=== PATIENT | male | born 1950 | race Caucasian/White ===

== ENCOUNTER 2023-10-14 18:54 | Inpatient (IN) | payer OTHER, SELFPAY ==
[2023-10-14 15:30] VITALS: BP 155/80
--- NOTE | 2023-10-14 15:39 | W.PN.CD ---
Addendum entered and electronically signed by Rome Pantoja MD 10/14/23 17:35:
Agree with below.
-Patient referred over from the cardiology office by Dr. Buckner for ICD shock and CHF.
-Patient to be admitted to Hospitalist service; IDDM.
-Patient is scheduled to undergo cardiac catheterization tomorrow for ischemic reevaluation; NPO after MN.
Original Note:
Today's Communication / Plan
-
Diuresis
NPO after midnight, hold apixaban
Cardiac catheterization in a.m. if renal function remains stable
Impression / Plan
-
*SEE SCANNED CONSULT*
THIS IS THE SUMMARY
Background: [address] Buckner with CAD, ICM, VT s/p ablation, BiV ICD (prior [employer] lead fracture with new RV lead placement 2011, prior BiV ICD pocket infection with extraction and replacement), hypertension, and diabetes requiring
insulin presented to the cardiology office after ICD shock.
Impression/Plan:
ICD shock
-36J with samaritan to sinus on 10/12/2023 at 2100 for VF, he was unaware of ICD therapy as he was asleep
-Amiodarone intolerance noted
-Continue sotalol & increase carvedilol to 25 mg
-Ischemic evaluation in a.m.
Paroxysmal atrial fibrillation
-Brief on prior device check, maintaining sinus on sotalol
-Oral Anticoagulation: Apixaban 5mg BID, he denies abnormal bleeding, he has missed one dose in the last week, hold for C in am
-[id number]: score at least 5 (Heart failure, HTN, Diabetes Mellitus, Vascular disease, age 65-74)
HFrEF/ICM (EF 20-25%), acute on chronic
-Up 10 pounds with lower extremity edema, without orthopnea & PND
-Diuresis with furosemide 40mg IV x 1 now
-GDMT as tolerated
-Beta-aisha: Carvedilol 25mg BID
-Aldosterone agonist: Can consider after recovery
-Isosorbide/hydralazine: Isosorbide mononitrate 60 mg daily
-MIS/ARB: Losartan 25 mg daily (Entresto cost prohibitive)
-SGLT inhibitor: Cost prohibitive
-BiV ICD: Implanted ([employer])
-Follow daily weight, I/Os, and BMP
-Heart failure education
-TTE in am
CAD
-Denies angina
-Ischemic evaluation via coronary angiography in am
-Continue ASA, beta aisha, and statin
-Lipid panel in am
VT/VF, on carvedilol and sotalol, ICD shock as above
Hypomagnesemia, 1.4 this am, replace
GERD, on PPI, follows with GI
Type 2 diabetes mellitus, Hgba1c in am
Anemia, chronic
Former smoker, continued cessation recommended
Subjective:
See scanned consultation.
Physical Exam
Vital Signs/Labs
Vital Signs
Temp Pulse Resp BP Pulse Ox
98.1 F 68 16 155/80 95
10/14/23 15:30 10/14/23 15:30 10/14/23 15:30 10/14/23 15:30 10/14/23 15:30
Physical Exam
Constitutional: No acute distress and Comfortable
EENT: Anicteric and Moist mucous membranes
Cardiovascular: Rhythm & rate is regular, Pedal edema present and S1S2 is normal
Respiratory: Respiratory effort normal and Lungs clear to auscul.
GI: Soft, Distention absent, Flat, Non tender and Normal bowel sounds
Neuro/Psych: AO x 3
Other: Skin (warm and dry with LE edema)
Data Reviewed
-
Date of Service: October 14, 2023
Labs: Labs Reviewed by me
Old Records: Reviewed
[2023-10-14 16:06] LABS: % Basophils 0.8 % (0-2); % Eosinophils 1.8 % (0-6); % Immature Granulocytes 0.3 % (0-0.5); % Lymphocytes 14.2 % (20.5-51.1); % Monocytes 8.6 % (1.7-9.3); % Neutrophils 74.3 % (42.2-75.2); Absolute Basophils 0.1 10^3/uL (0-0.2); Absolute Eosinophils 0.1 10^3/uL (0-0.7); Absolute Monocytes 0.6 10^3/uL (0.1-0.6); Absolute Neutrophils 5.2 10^3/uL (1.4-6.5); Hematocrit 33.2 % (39.0-52.0); Hemoglobin 9.4 g/dL (13.0-18.0); Mean Corp Hgb Conc. 28.3 g/dL (33.0-37.0); Mean Corpuscular Hgb 22.2 pg (27.0-31.0); Mean Corpuscular Volume 78.5 fL (80.0-94.0); Mean Platelet Volume 11.2 fL (7.4-10.4); Nucleated Red Blood Cells % 0 % (-); Platelet Count 227 10^3/uL (130-400); Red Blood Cell Count 4.23 10^6/uL (4.70-6.10); Red Cell Dist. Width 18.5 % (11.5-14.5); White Blood Cell Count 7.1 10^3/uL (4.8-10.8)
[2023-10-14 16:22] LABS: ALT (SGPT) 79 U/L (0-50); AST (SGOT) 131 U/L (17-59); Albumin 4.1 g/dl (3.5-5.0); Alkaline Phosphatase 198 U/L (38-126); Blood Urea Nitrogen 25 mg/dl (9-20); Calcium 8.4 mg/dl (8.4-10.2); Carbon Dioxide 27 mmol/L (22-30); Chloride 104 mmol/L (98-107); Glucose 180 mg/dl (70-99); Potassium 4.6 mmol/L (3.5-5.1); Sodium 137 mmol/L (135-145); Total Bilirubin 1.9 mg/dl (0.2-1.3); Total Protein 7.2 g/dl (6.3-8.2); eGFR > 60.00
[2023-10-14 16:39] LABS: Hypochromasia Slight; Normal RBC Morphology No
[2023-10-14 16:40] LABS: Ovalocytes Slight
[2023-10-14 16:42] LABS: Macrocytosis Slight
[2023-10-14 16:55] LABS: Troponin I 0.025 ng/ml
--- NOTE | 2023-10-14 17:26 | ED.GENMED ---
History of Present Illness
General
Chief Complaint: Breathing Problem
Source: patient and records
Exam Limitations: none
Time Seen by Provider: 10/14/23 17:18
Nursing documentation reviewed up to this point in time: agreed with
Travel History
Have you had any contact with someone who has COVID-19?: No
Do you have any symptoms of coronavirus? Fever > 100 degrees, chills, cough, shortness of breath, sore throat, loss of taste or smell, muscle aches, or headache?: No
History of Present Illness
History of Present Illness:
72-year-old male history of CHF, presents for evaluation of AICD shock apparently he was sleeping does not recall the shock, though previously has been shocked he does remember the shock, does have 10 pound weight gain, told he had low magnesium,
this is unconfirmed at this time, he is diabetic has hypertension
Past History
Past History
ED Past Medical History: Arrthythmia, CAD, CHF, GERD, HTN, IDDM, ND and Other
ED Past Surgical History: Cardiac (Placement of a defibrillator)
Social History
Tobacco: Non-smoker
Alcohol: None
Drug: None
Personal:
Living: with family
Employment: Disabled
Family History
Family History: Hypertension
Review of Systems
Review of Systems
All Other Systems: Not applicable
Constitutional: Reports weight gain and fatigue; Denies fever
Respiratory: Reports trouble breathing; Denies cough or hemoptysis
Cardiac: Reports no symptoms
ABD/GI: Reports no symptoms
: Reports no symptoms
Musculoskeletal: Reports edema
Skin: Reports no symptoms
Endocrine: Reports no symptoms
Psychiatric: Reports no symptoms
Phy Exam
Physical Exam
Physical Exam:
This
Physical Exam
General: 72 male looks dyspnea
Neck: No jaundice
Heart: s1/s2 regular rate and rhythm, no murmur. equal radial pulses.
Lungs: Faint crackle
Abdomen: Nontender
Neuro: alert and oriented. no focal neurological deficits
Skin: no rash
Psychiatric: well kept. interactive and cooperative
Extremities: Edema is present
Scores
Heart Failure Risk
Heart Failure Risk Score: Not Applicable
Course
Orders/Labs/Results
Orders:
Orders
10/14/23 15:35
Electrocardiogram (*1) Urgent
Reason for Study: Shortness of Breath
EKG- Treatment ONCE
10/14/23 15:54
Complete Blood Count/With Diff Urgent
Comprehensive Metabolic Panel Urgent
Digoxin Urgent
Comment: ADD ON
Magnesium Urgent
Comment: ADD ON
Phosphorus Urgent
Comment: ADD ON
Troponin I Urgent
10/14/23 17:18
Add On- LAB Urgent
Tests Added?: pbnp
CR Chest Portable - 1 View Urgent
Comment:
Reason For Exam: sob
Reason Study Needs to be Portable: Patient Unstable
10/14/23 17:20
Add On- LAB Urgent
Tests Added?: magnesium
10/14/23 17:28
Add On- LAB Urgent
Tests Added?: Digoxin
10/14/23 18:15
Add On- LAB Routine
Tests Added?: iron, ferritin, transferrin, TIBC, B12, folate
Admit/Transfer Patient As Directed
Co-Sign Provider:
Level of Care: Inpatient admission
Assign to:: IVU
Physician / Group: brigido kaye
Diagnosis: VF s/p ICD shock,CHF exacerbation
Reason for Hospitalization: VF s/p ICD shock,CHF exacerbation
Expected length of stay greater than two midnights?: Yes
ELOS- Estimated Length of Stay in days: 3
I certify the patient meets the requirements for IP care: Yes
10/14/23 18:18
Code Status As Directed
Resuscitation Status: Full Code
10/14/23 18:27
Magnesium Sulfate 2 Gram/50 ml [Magnesium Sulfate] 2 gram in 50 ml IV NOW
10/14/23 18:28
Furosemide [Lasix] 40 mg IV NOW STA
10/15/23 06:00
Echo 2D MMode Color/Doppler IN AM
Reason for Study: HFrEF, ICM, ICD shock
NPO
Allow oral meds: Yes
Allow clear liquids: No
Hgba1c [Glycohemoglobin (HgbA1c)] IN AM
Lipid Profile [Cardiovascular Evaluation] IN AM
Abnormal Lab Results
10/14/23
15:54
RBC 4.23 L 10^6/uL
(4.70-6.10)
Hgb 9.4 L g/dL
(13.0-18.0)
Hct 33.2 L %
(39.0-52.0)
MCV 78.5 L fL
(80.0-94.0)
MCH 22.2 L pg
(27.0-31.0)
MCHC 28.3 L g/dL
(33.0-37.0)
RDW 18.5 H %
(11.5-14.5)
MPV 11.2 H fL
(7.4-10.4)
Absolute Lymphs (auto) 1.0 L 10^3/uL
(1.2-3.4)
Lymphocytes % 14.2 L %
(20.5-51.1)
BUN 25 H mg/dl
(9-20)
Glucose 180 H mg/dl
(70-99)
Total Bilirubin 1.9 H mg/dl
(0.2-1.3)
AST 131 H U/L
(17-59)
ALT 79 H U/L
(0-50)
Alkaline Phosphatase 198 H U/L
(38-126)
Digoxin 0.4 L ng/ml
(0.8-2.0)
10/14/23 15:54
10/14/23 15:54
Vital Signs
Initial and Last Documented VS:
Initial Vital Signs
Temp Pulse Resp BP Pulse Ox
98.1 F 68 16 155/80 95
10/14/23 15:30 10/14/23 15:30 10/14/23 15:30 10/14/23 15:30 10/14/23 15:30
Last Documented Vital Signs
Temp Pulse Resp BP Pulse Ox
98.1 F 64 19 155/80 98
10/14/23 15:30 10/14/23 17:45 10/14/23 17:45 10/14/23 15:30 10/14/23 17:45
MDM/Problems Addressed
Differential Diagnosis Includes:
Torsades VT VF heart failure
MDM/Problems Addressed:
VT showed
Chronic conditions affecting care:
Heart failure CAD diabetes
Chronic conditions affecting care: DM
Acute Exacerbation and/or Progression of Chronic Illness: DM and Cardiomyopathy
*Radiology
Radiology exam reviewed: preliminary read by ED provider
*Pulse Oximetry
Patient hypoxic: no
*EKG
Interpreted by ED Provider?: Yes
Interpretation: abnormal
Comparison EKG: no comparison EKG present
Heart Rate: 7
Rate: normal
Rhythm: sinus
Ischemia: non-specific ST changes
*Business Development Executive Interpretation
Rate: normal
Interpretation: normal
Rhythm: ventricular paced
*Critical Care Note
Total Time (30-74mins, 75-104mins- exclusive of procedures): 12
ED Attending Note
-
Portions of this chart may have been created with voice recognition software.� Occasional wrong word or��sound alike� substitutions may have occurred due to the inherent limitations of voice recognition software.
Discharge Plan
Departure
Patient Disposition: Admit
Date of Disposition: 10/14/23
Time of Disposition: 18:13
Presentation/result/management discussed w/ accepting MD/DO: Hospitalist
Patient with high blood pressure during this ER visit?: Yes
Condition: Fair
Covid-19: Not Applicable
Discharge Problem:
Ventricular tachycardia, Hypomagnesemia
Prescriptions:
No Action
digoxin 0.125 MG tablet
0.125 mg PO MOWEFR
atorvastatin 80 MG tablet
80 mg PO QPM
aspirin 81 MG tablet,delayed release (DR/EC)
81 mg PO DAILY
Novolin 70/30 U-100 Insulin 100 UNIT/1 ML suspension
60 units SC MEALS
sotalol [Betapace] 160 MG tablet
160 mg PO BID
pantoprazole 40 MG tablet,delayed release (DR/EC)
40 mg PO DAILY
metformin 1,000 MG tablet
1,000 mg PO BID@0800,1700
losartan 25 MG tablet
25 mg PO QPM
furosemide 20 MG tablet
20 mg PO DAILY
cholecalciferol (vitamin D3) [Vitamin D3] 1,000 UNIT capsule
1,000 unit PO Daily
carvedilol [Coreg] 12.5 mg Tablet
12.5 mg PO BID
isosorbide mononitrate [Imdur] 60 mg Tablet Extended Release 24 Hr
60 mg PO DAILY
tamsulosin [Flomax] 0.4 mg Capsule
0.4 mg PO HS
montelukast [Singulair] 10 mg Tablet
10 mg PO DAILY
Prostate 2.4 1,200-15-35 decm-fexj-hny Capsule
1 cap PO DAILY
coQ10 (ubiquinol) 100 mg Capsule
100 mg PO DAILY
Eliquis 5 mg Tablet
5 mg PO BID
Interventions
Interventions:
*Risk Screen - Suicide Last Done: 10/14/23 15:30
*General Assessment Last Done: 10/14/23 15:30
*Neglect/Abuse Screening Last Done: 10/14/23 15:30
ED- Fall Risk Assessment Last Done: 10/14/23 17:47
*ED COVID-19 Vaccine History Last Done: 10/14/23 15:30
ED- Cardiac Assessment Last Done: 10/14/23 17:49
ED- Pulmonary Assessment Last Done: 10/14/23 17:47
[2023-10-14 17:46] VITALS: BMI 31.6
[2023-10-14 18:11] LABS: Magnesium 1.6 mg/dl (1.6-2.3)
[2023-10-14 18:14] LABS: Digoxin 0.4 ng/ml (0.8-2.0)
--- NOTE | 2023-10-14 18:23 | HPS.HSE ---
Family Physician
-
Family Physician:
Chief Complaint
-
Shortness of breath
History of Present Illness
72-year-old male with past with history of CAD, ischemic cardiomyopathy, VT status post ablation, BiV ICD, diabetes mellitus, hypertension, anemia came to the hospital with shortness of breath for about 1 month. Patient got a call Friday that he
had an ICD shock on Friday. Patient did not felt any ICD being treated. Today he went to his cardiology office who instructed patient to come to the ED for evaluation. Patient currently denies any chest pain. His shortness of breath is mainly
exertional in nature. Does notice increased lower extremity swelling. Denies any nausea, vomiting, diarrhea, constipation.
Medical History
Past Medical History
Past Medical History: Reports Other
Additional Past Medical History:
CAD, ischemic cardiomyopathy, VT status post ablation, BiV ICD, diabetes mellitus, hypertension, anemia
Past Surgical History: Reports Cardiac
Social History
Tobacco: Non-smoker
Alcohol: None
Drug: None
Family History
Family History: Not pertinent
Allergies / Home Medications
Allergies reflects when Allergies were last updated in [facility].
Home Medications with original date entered in [facility]
Allergy/Medication List:
Allergies
Allergy/AdvReac Type Severity Reaction Status Date / Time
amiodarone Allergy SEVERE Verified 09/26/15 15:15
tremors
guaifenesin [From Entex] Allergy severe Verified 09/26/15 15:15
heart
racing
lisinopril [From Prinivil] Allergy pt wasn't Verified 10/14/23 17:32
sure
phenylephrine HCl Allergy severe Verified 09/26/15 15:15
[From Entex] heart
racing
phenylpropanolamine HCl Allergy HEART RACES Verified 09/26/15 15:15
[From Entex LA]
pseudoephedrine tannate Allergy severe Verified 09/26/15 15:15
[From Entex] heart
racing
Home Medications
digoxin 125 mcg (0.125 mg) tablet 0.125 mg PO MOWEFR 04/30/11
atorvastatin 80 mg tablet 80 mg PO QPM 09/03/12
aspirin 81 mg tablet,delayed release 81 mg PO DAILY 01/19/13
insulin human U-100 NPH-regulr 70-30 mix 100 unit/mL subcutaneous susp (Novolin 70/30 U-100 Insulin) 60 units SC MEALS 12/18/14
cholecalciferol (vitamin D3) 25 mcg (1,000 unit) capsule (Vitamin D3) 1,000 unit PO Daily 11/17/18
furosemide 20 mg tablet 20 mg PO DAILY 11/17/18
losartan 25 mg tablet 25 mg PO QPM 11/17/18
metformin 1,000 mg tablet 1,000 mg PO BID@0800,1700 11/17/18
pantoprazole 40 mg tablet,delayed release 40 mg PO DAILY 11/17/18
sotalol 160 mg tablet (Betapace) 160 mg PO BID 11/17/18
Q0-S-orilw-soy hobdm-kplrqtlduy-epmbiwyh 1,200 unit-15 unit-35 mcg cap (Prostate 2.4) 1 cap PO DAILY 10/14/23
apixaban 5 mg tablet (Eliquis) 5 mg PO BID 10/14/23
carvedilol 12.5 mg tablet (Coreg) 12.5 mg PO BID 10/14/23
coQ10 (ubiquinol) 100 mg capsule 100 mg PO DAILY 10/14/23
isosorbide mononitrate 60 mg tablet,extended release 24 hr 60 mg PO DAILY 10/14/23
montelukast 10 mg tablet (Singulair) 10 mg PO DAILY 10/14/23
tamsulosin 0.4 mg capsule (Flomax) 0.4 mg PO HS 10/14/23
Review of Systems
-
History Source: Patient
A 12 point ROS was completed and negative except as noted: Yes
Respiratory: Reports Trouble Breathing
Musculoskeletal: Reports Edema
Physical Exam
Vital Signs
Vital Signs
Temp Pulse Resp BP Pulse Ox
98.1 F 64 19 155/80 98
10/14/23 15:30 10/14/23 17:45 10/14/23 17:45 10/14/23 15:30 10/14/23 17:45
Physical Exam
General: No Apparent Distress and Comfortable
HEENT: NormoCephalic, Anicteric and Moist mucous membranes
Respiratory: Clear; No Wheezes
Cardiac: S1/S2; No Tachycardia
Breast: Deferred by me
GI: Soft, Non Tender, Non Distended and Normal Bowel Sounds
Rectal: Deferred by Provider
Genito-urinary: No Romero
Musculoskeletal: Edema, Left Lower Extremity and Edema, Right Lower Extremity
Neuro: Awake, Alert, Oriented and AO x 3
Psych: Calm and Intact Judgment/Insight
Laboratory Results
-
10/14/23 15:54
10/14/23 15:54
Laboratory Results
Total Bilirubin 1.9 mg/dl (0.2-1.3) H 10/14/23 15:54
AST 131 U/L (17-59) H 10/14/23 15:54
ALT 79 U/L (0-50) H 10/14/23 15:54
Alkaline Phosphatase 198 U/L (38-126) H 10/14/23 15:54
Troponin I 0.025 ng/ml 10/14/23 15:54
Data Reviewed
-
Lab Data: Labs Reviewed by me and Discussed with Patient
Impression/Plan
-
Shortness of breath likely secondary to V-fib and acute on chronic congestive heart failure with reduced ejection fraction/ischemic cardiomyopathy
N.p.o. past midnight for cardiac catheterization tomorrow
IV Lasix
Continue with Imdur, sotalol, Coreg
Hold Eliquis for catheterization in a.m.
Echo
trend trops
Paroxysmal atrial fibrillation
Continue with sotalol, Coreg. Hold Eliquis for catheterization in a.m.
History of CAD
Currently denies any chest pain
Ischemic evaluation tomorrow
Continue with aspirin, Coreg and statin
Hypomagnesemia
Replete
Type 2 diabetes mellitus
Check A1c
Insulin sliding scale, low-dose Lantus since n.p.o. past midnight. Takes 70/30 at home
Anemia, suspect chronic
Check iron panel, B12, folate
Elevated LFTs
Could be high secondary to congestion
Monitor
Denies abdominal pain
DVT prophylaxis
SCDs
Full code
I spent a total of 77 minutes with the patient or on the floor. More than 50% of this time involved counseling and coordination of care.
[2023-10-14] MEDS: LASIX 40 MG IV (19:02)
[2023-10-14] MEDS: MAGNESIUM SULFATE 50 IV (19:02)
[2023-10-14 20:55] VITALS: BMI 30.8
[2023-10-14 21:01] VITALS: BP 114/99
[2023-10-14 21:19] VITALS: BMI 30.8
[2023-10-14] MEDS: BETAPACE 160 MG PO (21:25)
[2023-10-14] MEDS: COREG 12.5 MG PO (21:25)
[2023-10-14] MEDS: FLOMAX 0.400000000000000022 MG PO (21:25)
[2023-10-14] MEDS: LANTUS 0.0700000000000000067 UNITS SC (21:34)
[2023-10-14 21:37] LABS: Glucose - Point of Care 215 mg/dl (70-99)
--- NOTE | 2023-10-14 22:06 | PTCARENOTE ---
received patient from the ED. AAOx3. denies any pain. ambulating independently. denies lightheadedness/dizziness. IV mag completed on arrival. AV paced on tele. bp stable. mild dyspnea noted. lungs clear throughout, 97% on RA. + 2 LE edema noted,
L>R. reviewed plan of care with patient and verbalized understanding. NPO at midnight for a cardiac cath in AM. call ledezma within reach. calls appropriately.
[2023-10-14 22:10] LABS: Troponin I 0.028 ng/ml
[2023-10-14 22:26] VITALS: BP 133/74
[2023-10-15] VITALS (10 sets, daily range): BP systolic 131–163; BP diastolic 72–97; BMI 30.5
--- NOTE | 2023-10-15 03:31 | PTCARENOTE ---
patient sleeping well overnight. ambulating to the BR. denies any lightheadedness/dizziness. patient c/o arthritic pain b/l feet. warm compresses applied per patients request. NPO since midnight.
[2023-10-15 03:34] LABS: % Basophils 1.2 % (0-2); % Eosinophils 1.7 % (0-6); % Immature Granulocytes 0.2 % (0-0.5); % Lymphocytes 19.3 % (20.5-51.1); % Monocytes 9.4 % (1.7-9.3); % Neutrophils 68.2 % (42.2-75.2); Absolute Basophils 0.1 10^3/uL (0-0.2); Absolute Eosinophils 0.1 10^3/uL (0-0.7); Absolute Lymphocytes 1.2 10^3/uL (1.2-3.4); Absolute Monocytes 0.6 10^3/uL (0.1-0.6); Absolute Neutrophils 4.1 10^3/uL (1.4-6.5); Hemoglobin 8.4 g/dL (13.0-18.0); Mean Corpuscular Hgb 22.2 pg (27.0-31.0); Mean Corpuscular Volume 74.1 fL (80.0-94.0); Mean Platelet Volume 11.1 fL (7.4-10.4); Nucleated Red Blood Cells % 0 % (-); Platelet Count 170 10^3/uL (130-400); Red Blood Cell Count 3.78 10^6/uL (4.70-6.10); Red Cell Dist. Width 18.4 % (11.5-14.5)
[2023-10-15 03:55] LABS: ALT (SGPT) 96 U/L (0-50); AST (SGOT) 138 U/L (17-59); Albumin 3.3 g/dl (3.5-5.0); Alkaline Phosphatase 178 U/L (38-126); Blood Urea Nitrogen 25 mg/dl (9-20); Calcium 8.2 mg/dl (8.4-10.2); Carbon Dioxide 28 mmol/L (22-30); Chloride 101 mmol/L (98-107); Estimated Creatinine Clearance 107 ml/min; Glucose 220 mg/dl (70-99); HDL Cholesterol 28 mg/dl; LDL Cholesterol, Calculated 57 mg/dl; Potassium 3.6 mmol/L (3.5-5.1); Sodium 139 mmol/L (135-145); Total Bilirubin 1.9 mg/dl (0.2-1.3); Total Cholesterol 98 mg/dl (50-199); Total Protein 6.1 g/dl (6.3-8.2); Triglyceride 65 mg/dl (10-149); Very Low Density Lipoprotein 13 mg/dl (0-30); eGFR > 60.00
[2023-10-15 03:58] LABS: Troponin I 0.031 ng/ml
[2023-10-15 08:01] LABS: Glucose - Point of Care 191 mg/dl (70-99)
[2023-10-15 09:33] LABS: Glycohemoglobin (HgbA1c) 7.7 % (4.0-5.6)
[2023-10-15 09:51] LABS: Magnesium 1.7 mg/dl (1.6-2.3)
[2023-10-15] MEDS: IMDUR (EXTENDED RELEASE) 60 MG PO (09:55)
[2023-10-15] MEDS: SINGULAIR 10 MG PO (09:55)
[2023-10-15] MEDS: BETAPACE 160 MG PO ×2 (09:55→20:00)
[2023-10-15] MEDS: COREG 12.5 MG PO ×2 (09:55→20:00)
[2023-10-15] MEDS: ASPIR LOW (ENTERIC COATED) 81 MG PO (09:55)
[2023-10-15] MEDS: PROTONIX 40 MG PO (09:55)
[2023-10-15] MEDS: NOVOLOG FLEXPEN-LOW RESISTANCE SC ×2 (10:03→13:12)
[2023-10-15] MEDS: NOVOLOG FLEXPEN SC ×2 (10:03→13:12)
--- NOTE | 2023-10-15 12:00 | CARDSERVLU ---
Echocardiogram with Lumason completed after protocol screening completed. Allergies verified.
Patent IV site: __L Wrist___
IV site flushed with 0.9% NaCl pre and post administration.
Diluted bolus method utilized to enhance visualization of ventricular duran.
Total volume given: __1.5__ mL
Patient tolerated all procedures well without complications.
[2023-10-15 12:39] LABS: Glucose - Point of Care 195 mg/dl (70-99)
--- NOTE | 2023-10-15 12:50 | W.PN.HOSP.TC ---
Today's Communication/Plan
-
Monitor vital signs and see plan
Plan for cath today
Replete magnesium
NPO
echo
Assessment / Plan
Assessment / Plan
General: No Apparent Distress and Comfortable
HEENT: NormoCephalic, Anicteric and Moist mucous membranes
Respiratory: Clear; No Wheezes
Cardiac: S1/S2; No Tachycardia
Breast: Deferred by me
GI: Soft, Non Tender, Non Distended and Normal Bowel Sounds
Rectal: Deferred by Provider
Genito-urinary: No Romero
Musculoskeletal: Edema, Left Lower Extremity and Edema, Right Lower Extremity
Neuro: Awake, Alert, Oriented and AO x 3
Psych: Calm and Intact Judgment/Insight
Shortness of breath likely secondary to V-fib and acute on chronic congestive heart failure with reduced ejection fraction/ischemic cardiomyopathy
N.p.o. for cardiac catheterization tomorrow
IV Lasix once in ED; monitor, likely will need lasix later
Continue with Imdur, sotalol, Coreg
Hold Eliquis for catheterization
Echo
trops not significant
Paroxysmal atrial fibrillation
Continue with sotalol, Coreg.� Hold Eliquis for catheterization
History of CAD
Currently denies any chest pain
Ischemic evaluation 10/15
Continue with aspirin, Coreg and statin
Hypomagnesemia
Replete
Type 2 diabetes mellitus
A1c 7.7
Insulin sliding scale, low-dose Lantus since n.p.o. past midnight.� Takes 70/30 at home. now start 14 units lantus tonite
Anemia, suspect chronic
Check iron panel, B12, folate
Elevated LFTs
Could be high secondary to congestion
Monitor
Denies abdominal pain
DVT prophylaxis
SCDs
Full code
Anticipated Discharge: > 48 hours
Subjective/Interval History
-
Date of Service: October 15, 2023
denies pain
Objective Data
-
Labs:
Laboratory Results
10/15/23
03:18
WBC 6.0
Hgb 8.4 L
Hct 28.0 L
Plt Count 170 D
Sodium 139
Potassium 3.6
Chloride 101
Carbon Dioxide 28
BUN 25 H
Creatinine 0.8
Glucose 220 H
Calcium 8.2 L
Total Bilirubin 1.9 H
AST 138 H
ALT 96 H
Alkaline Phosphatase 178 H
Vital Signs:
Vital Signs
Temp Pulse Resp BP Pulse Ox
98.3 F 60 18 152/93 96
10/15/23 12:48 10/15/23 11:15 10/15/23 12:48 10/15/23 07:58 10/15/23 12:48
I&O
10/14/23 10/15/23 10/16/23
06:59 06:59 06:59
Intake Total 50 / 50
Output Total 1125 / 1125
Balance -1075 / -1075
--- NOTE | 2023-10-15 13:14 | CM ---
Reviewed chart. Met with and Mrs. Bella to review discharge plans. He states prior to admission he resides with his spouse, son and three grandchildren in a one story home with two steps to enter. He states prior to admission he was
independent with ambulation and adls. He states he does not have any DME in the home. He states he has a prescription plan and uses [facility] and the [facility]. Medical work-up in progress. The discharge plan is to return home with his
family when medically stable.
[2023-10-15] MEDS: MAGNESIUM SULFATE 50 IV (13:37)
[2023-10-15] MEDS: LANOXIN 125 MCG PO (13:37)
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
[2023-10-15 13:49] LABS: Iron 33 ug/dl (49-181)
[2023-10-15 14:16] LABS: Ferritin 14.2 ng/ml (17.9-464.0)
[2023-10-15 14:47] LABS: Folate > 20.0 ng/ml (2.76-20); Vitamin B12 574 pg/ml (239-931)
--- NOTE | 2023-10-15 16:39 | PTCARENOTE ---
received pt back from photonic laboratory technician, right radial is CDI. pt offers no complaints at this time. pt educated on plan of care for the evening and pt verbalized understanding.
--- NOTE | 2023-10-15 16:39 | ITS.CL.ANGIO ---
Ambulatory Care - Angioplasty
Angioplasty
Procedure Report:
CARDIAC CATHETERIZATION REPORT
Date of Procedure: 10/15/2023
Referring: Rah Buckner M.D.
INDICATION: Ventricular fibrillation status post ICD shock.
PROCEDURE:
1. Left heart catheterization.
2. Coronary angiography.
3. Successful PCI of the small OM1.
ACCESS:
6 [place] right radial artery.
CATHETERS:
1. 5 [place] JR4.
2. 5 [place] JL 3.5.
3. 6 [place] EBU 3.5 guiding catheter.
HEMODYNAMIC DATA
Weight (kg): 105.7
AO (s/d/x, mmHg): 140/78/101
LV (s/x mmHg): 140/35 (A wave to 50)
LEFT VENTRICULOGRAPHY: Not performed.
CORONARY ANGIOGRAPHY
Dominance: Left.
Left Main: Normal size, bifurcating vessel. There is no coronary artery disease.
LAD: Normal size vessel giving rise to at least 1 diagonal. The vessel is chronically totally occluded at its proximal margin and fills via collaterals from the circumflex.
Ramus: Congenitally absent.
Circumflex: Large size, dominant vessel giving rise to 3 obtuse marginals followed by left posterolateral branch and an L PDA. A patent stent is present in the distal circumflex, after the left posterolateral branch/OM 3 and leading into the
LPDA. There is a 90% lesion in the first obtuse marginal.
RCA: Small size, nondominant vessel. There is an 80% lesion in the proximal vessel.
INTERVENTION(S)
1. Successful PCI of the 90% OM1 lesion (Medtronic [place] 2.0 x 12 CEM) with reduction in stenosis to 0%, maintaining ODALIS-3 flow.
Narrative:
The decision was made to proceed with percutaneous coronary intervention. The diagnostic catheter was removed over a wire and a 6Fr EBU 3.5 guiding catheter was advanced to the aortic root and seated in the left main coronary artery. Additional
heparin was given and a Power Turn Flex wire was advanced into the distal OM1. The 90% proximal OM1 lesion was predilated with a 2.0 x 12 semi-compliant balloon to 12 john. The semi-compliant balloon was removed and a Medtronic [place] 2.0 x 12
drug-eluting stent was advanced. The stent was deployed at 12 atmospheres. The stent balloon was removed. Angiography was performed in orthogonal views, confirming good stent expansion and an excellent angiographic result. The coronary wire was
withdrawn and the guide was disengaged from the artery. The catheter was removed over a standard J-wire.
Closure Device: Vascular band.
Radiation (mGy): 663.87
DAP (cm2.Gy): 47.4104
Fluoroscopy time (minutes): 7.3
Sedation time (minutes): 44
CONCLUSIONS
1. Left dominant circulation with an 80% lesion in the proximal RCA, a chronically totally occluded proximal LAD, a patent stent in the distal circumflex leading into the LPDA and a new, 90% lesion in the proximal OM1, status post successful PCI
(Medtronic [place] 2.0 x 12 CEM) with reduction in stenosis to 0%, maintaining ODALIS-3 flow.
2. Severely elevated filling pressures (LVEDP = 35 mmHg at 105.7 kg) with evidence of diastolic dysfunction (A wave to 50 mmHg).
RECOMMENDATIONS:
1. Expectant management after cardiac catheterization via right radial approach.
2. Limited weight bearing on the right wrist for one week.
3. Antithrombotic therapy with clopidogrel and apixaban. Discontinue aspirin.
4. Continue guideline directed medical therapy as hemodynamics tolerate.
5. Uptitrate diuretics given severely elevated filling pressures.
6. Referral to cardiac rehab.
Copy to: Rah Buckner M.D., Jeff HopkinsO.
Ra Marroquin DO, FACC, FACP
[2023-10-15 17:06] LABS: Glucose - Point of Care 204 mg/dl (70-99)
[2023-10-15] MEDS: LASIX 80 MG IV (17:30)
[2023-10-15] MEDS: LIPITOR 80 MG PO (17:30)
[2023-10-15] MEDS: NOVOLOG FLEXPEN-LOW RESISTANCE 2 UNITS SC (17:44)
[2023-10-15] MEDS: NOVOLOG FLEXPEN 4 UNITS SC (17:45)
--- NOTE | 2023-10-15 19:02 | PTCARENOTE ---
right radial is CDI. pt offers no complaints at this time. pt is av paced on the monitor, hr in the 60s, vss. pt is 97% RA. pt educated on plan of care. call ledzema within reach.
[2023-10-15] MEDS: KCL 40 MEQ PO (20:00)
[2023-10-15 21:27] LABS: Glucose - Point of Care 261 mg/dl (70-99)
[2023-10-15] MEDS: FLOMAX 0.400000000000000022 MG PO (22:27)
[2023-10-15] MEDS: LANTUS 0.140000000000000013 UNITS SC (22:27)
--- NOTE | 2023-10-15 22:55 | PTCARENOTE ---
assumed care of patient at the change of shift. AAOx3. denies any pain. patient states feeling much better. denies SOB. R radial band removed at approx 2029. gauze/teg applied. site intact, + pulse. PHYSICIAN CODER on tele. bp stable. ambulating to the bathroom
independently. reviewed activity restrictions with R wrist. Dr. Marroquin at the bedside with patient. updated Dr. Marroquin on AM potassium level. 40 PO K order placed and given, see mar. call ledezma within reach. calls appropriately. urinating clear,
yellow urine in the urinal.
[2023-10-16 04:19] VITALS: BP 132/65
[2023-10-16 04:47] LABS: % Basophils 1.2 % (0-2); % Immature Granulocytes 0.4 % (0-0.5); % Lymphocytes 20.1 % (20.5-51.1); % Neutrophils 66.3 % (42.2-75.2); Absolute Basophils 0.1 10^3/uL (0-0.2); Absolute Eosinophils 0.1 10^3/uL (0-0.7); Absolute Monocytes 0.5 10^3/uL (0.1-0.6); Absolute Neutrophils 3.2 10^3/uL (1.4-6.5); Hematocrit 28.4 % (39.0-52.0); Hemoglobin 8.6 g/dL (13.0-18.0); Mean Corp Hgb Conc. 30.3 g/dL (33.0-37.0); Mean Corpuscular Hgb 22.6 pg (27.0-31.0); Mean Corpuscular Volume 74.5 fL (80.0-94.0); Mean Platelet Volume 10.8 fL (7.4-10.4); Nucleated Red Blood Cells % 0 % (-); Platelet Count 166 10^3/uL (130-400); Red Blood Cell Count 3.81 10^6/uL (4.70-6.10); Red Cell Dist. Width 18.3 % (11.5-14.5); White Blood Cell Count 4.9 10^3/uL (4.8-10.8)
[2023-10-16 05:19] LABS: ALT (SGPT) 114 U/L (0-50); AST (SGOT) 139 U/L (17-59); Albumin 3.4 g/dl (3.5-5.0); Alkaline Phosphatase 201 U/L (38-126); Blood Urea Nitrogen 22 mg/dl (9-20); Calcium 7.7 mg/dl (8.4-10.2); Carbon Dioxide 29 mmol/L (22-30); Chloride 103 mmol/L (98-107); Estimated Creatinine Clearance 94 ml/min; Glucose 229 mg/dl (70-99); Potassium 3.8 mmol/L (3.5-5.1); Sodium 136 mmol/L (135-145); Total Bilirubin 2.1 mg/dl (0.2-1.3); Total Protein 6.2 g/dl (6.3-8.2); eGFR > 60.00
[2023-10-16 06:00] VITALS: BMI 29.3
[2023-10-16] MEDS: NOVOLOG FLEXPEN-LOW RESISTANCE 2 UNITS SC (08:06)
[2023-10-16] MEDS: BETAPACE 160 MG PO ×2 (08:07→19:39)
[2023-10-16] MEDS: NOVOLOG FLEXPEN 4 UNITS SC ×2 (08:07→16:36)
[2023-10-16] MEDS: COREG 12.5 MG PO (08:08)
[2023-10-16] MEDS: SINGULAIR 10 MG PO (08:09)
[2023-10-16] MEDS: IMDUR (EXTENDED RELEASE) 60 MG PO (08:09)
[2023-10-16] MEDS: PROTONIX 40 MG PO (08:09)
[2023-10-16] MEDS: ELIQUIS 5 MG PO ×2 (08:09→19:39)
[2023-10-16] MEDS: PLAVIX 75 MG PO (08:09)
[2023-10-16] MEDS: LASIX 80 MG IV (08:10)
[2023-10-16 08:58] VITALS: BP 125/73
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
[2023-10-16 11:21] VITALS: BP 133/75
--- NOTE | 2023-10-16 13:22 | W.PN.HOSP.TC ---
Today's Communication/Plan
-
Monitor vital signs and see plan
No documented Accu-Cheks since last night, will await and will titrate insulin according to the
Continue with IV Lasix
Continue with diuresis
Continue with Plavix, Eliquis
Assessment / Plan
Assessment / Plan
General: No Apparent Distress and Comfortable
HEENT: NormoCephalic, Anicteric and Moist mucous membranes
Respiratory: Clear; No Wheezes
Cardiac: S1/S2; No Tachycardia
Breast: Deferred by me
GI: Soft, Non Tender, Non Distended and Normal Bowel Sounds
Rectal: Deferred by Provider
Genito-urinary: No Romero
Musculoskeletal: Edema, Left Lower Extremity and Edema, Right Lower Extremity
Neuro: Awake, Alert, Oriented and AO x 3
Psych: Calm and Intact Judgment/Insight
Shortness of breath likely secondary to V-fib and acute on chronic congestive heart failure with reduced ejection fraction/ischemic cardiomyopathy
cw IV lasix
Continue with Imdur, sotalol, Coreg
eliquis
Echo 10/15 with EF 20 to 25%, global hypokinesis
trops not significant
s/p cath 10/15 with new stent prox OM1; now on eliquis and plavix
Paroxysmal atrial fibrillation
Continue with sotalol, Coreg.� Hold Eliquis for catheterization
on dig
History of CAD
Currently denies any chest pain
s/p cath 10/15 with new stent prox OM1; now on eliquis and plavix
Continue with aspirin, Coreg and statin
Hypomagnesemia
Replete
Type 2 diabetes mellitus
A1c 7.7
Takes 70/30 at home. now start 14 units lantus tonite
no documented accuchecks since last night
Anemia, suspect chronic
Iron deficiency
Start IV iron
Elevated LFTs
Could be high secondary to congestion
Monitor; RUQ US
Denies abdominal pain
hold statin
DVT prophylaxis
SCDs
Full code
I spent a total of 53 minutes with the patient or on the floor. More than 50% of this time involved counseling and coordination of care.
Anticipated Discharge: 24 - 48 hours
Subjective/Interval History
-
Date of Service: October 16, 2023
Denies pain
Objective Data
-
Labs:
Laboratory Results
10/16/23
04:22
WBC 4.9
Hgb 8.6 L
Hct 28.4 L
Plt Count 166
Sodium 136
Potassium 3.8
Chloride 103
Carbon Dioxide 29
BUN 22 H
Creatinine 0.9
Glucose 229 H
Calcium 7.7 L
Total Bilirubin 2.1 H
AST 139 H
ALT 114 H
Alkaline Phosphatase 201 H
Vital Signs:
Vital Signs
Temp Pulse Resp BP Pulse Ox
97.7 F 65 20 125/73 97
10/16/23 11:20 10/16/23 10:00 10/16/23 11:20 10/16/23 08:58 10/16/23 11:20
I&O
10/15/23 10/16/23 10/17/23
06:59 06:59 06:59
Intake Total 50 / 50 250 / 250
Output Total 1125 / 1125 3975 / 3975 3150 / 3150
Balance -1075 / -1075 -3725 / -3725 -3150 / -3150
[2023-10-16 13:36] LABS: Glucose - Point of Care 306 mg/dl (70-99)
--- NOTE | 2023-10-16 13:47 | CM ---
Reviewed chart. Met with and Mrs. Bella to review discharge plans. He states he feels much better and maybe going home soon. We reviewed VNA services and he is currently declining VNA Services. Prior to admission he resides with his spouse
son and three grandchildren in a one story home with two steps to enter. Prior to admission he was independent with ambulation and adls. He does not have any DME in the home. He has a prescription plan and uses [facility] and the [facility]. Medical work-up in progress. The discharge plan is to return home with his family when medically stable.
[2023-10-16] MEDS: FERRLECIT 110 MG IV (15:03)
[2023-10-16 15:30] VITALS: BP 149/86
[2023-10-16 15:44] LABS: ACT-LR - POC > 397 Seconds (116-155)
[2023-10-16] MEDS: NOVOLOG FLEXPEN-LOW RESISTANCE 4 UNITS SC (16:34)
[2023-10-16] MEDS: NOVOLOG FLEXPEN-LOW RESISTANCE 3 UNITS SC (18:15)
[2023-10-16 18:16] LABS: Glucose - Point of Care 288 mg/dl (70-99)
[2023-10-16] MEDS: NOVOLOG FLEXPEN 6 UNITS SC (18:16)
--- NOTE | 2023-10-16 18:36 | PTCARENOTE ---
pt continues to be AV paced on the monitor, HR in the 60s. vss. pt offers no complaints at this time. pt has ambulated through the halls and room with no issues. pt educated on plan of care and pt verbalized understanding. call ledezma within reach.
[2023-10-16 19:27] VITALS: BP 117/61
[2023-10-16] MEDS: COREG 25 MG PO (19:39)
[2023-10-16 21:41] LABS: Glucose - Point of Care 306 mg/dl (70-99)
[2023-10-16 22:29] VITALS: BP 121/68
[2023-10-16] MEDS: NOVOLOG FLEXPEN 8 UNITS SC (22:30)
[2023-10-16] MEDS: FLOMAX 0.400000000000000022 MG PO (22:30)
[2023-10-16] MEDS: LANTUS 0.190000000000000002 UNITS SC (22:31)
--- NOTE | 2023-10-16 22:35 | PTCARENOTE ---
blood glucose-306. updated Johanna Danielle HIGH SCHOOL FOOTBALL COACH. 8 units of insulin ordered and given. HS Lantus given as well, see mar. will recheck glucose in 2 hrs.
patient ambulating to the bathroom independently. denies any cp/sob. 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 bp stable. removed dressing from R radial site, site intact. answered all questions. reviewed medications and plan of care. call ledezma within reach.
[2023-10-17 00:32] LABS: Glucose - Point of Care 242 mg/dl (70-99)
[2023-10-17 04:17] VITALS: BP 112/83
[2023-10-17 04:27] LABS: Glucose - Point of Care 195 mg/dl (70-99)
[2023-10-17 05:14] LABS: % Basophils 0.9 % (0-2); % Eosinophils 2.6 % (0-6); % Immature Granulocytes 0.5 % (0-0.5); % Lymphocytes 17.8 % (20.5-51.1); % Neutrophils 69.2 % (42.2-75.2); Absolute Basophils 0.1 10^3/uL (0-0.2); Absolute Eosinophils 0.1 10^3/uL (0-0.7); Absolute Monocytes 0.5 10^3/uL (0.1-0.6); Absolute Neutrophils 3.8 10^3/uL (1.4-6.5); Mean Corpuscular Hgb 22.6 pg (27.0-31.0); Mean Corpuscular Volume 75.2 fL (80.0-94.0); Nucleated Red Blood Cells % 0 % (-); Platelet Count 158 10^3/uL (130-400); Red Blood Cell Count 3.99 10^6/uL (4.70-6.10); Red Cell Dist. Width 18.2 % (11.5-14.5); White Blood Cell Count 5.5 10^3/uL (4.8-10.8)
[2023-10-17 05:48] LABS: ALT (SGPT) 91 U/L (0-50); AST (SGOT) 77 U/L (17-59); Albumin 3.2 g/dl (3.5-5.0); Alkaline Phosphatase 177 U/L (38-126); Blood Urea Nitrogen 23 mg/dl (9-20); Calcium 7.8 mg/dl (8.4-10.2); Carbon Dioxide 29 mmol/L (22-30); Chloride 99 mmol/L (98-107); Estimated Creatinine Clearance 94 ml/min; Glucose 189 mg/dl (70-99); Potassium 3.2 mmol/L (3.5-5.1); Sodium 138 mmol/L (135-145); Total Bilirubin 1.9 mg/dl (0.2-1.3); Total Protein 6.1 g/dl (6.3-8.2); eGFR > 60.00
[2023-10-17 06:00] VITALS: BMI 28.3
--- NOTE | 2023-10-17 06:04 | PTCARENOTE ---
K 3.2 this morning. notified Johanna Danielle MANAGER ICU. 40 PO K ordered, see mar.
[2023-10-17] MEDS: KCL 40 MEQ PO ×2 (06:30→10:09)
[2023-10-17] MEDS: NOVOLOG FLEXPEN-LOW RESISTANCE 2 UNITS SC (07:35)
[2023-10-17] MEDS: NOVOLOG FLEXPEN 7 UNITS SC ×2 (07:35→11:38)
[2023-10-17 07:37] LABS: Glucose - Point of Care 203 mg/dl (70-99)
[2023-10-17 07:43] VITALS: BP 144/86
[2023-10-17] MEDS: BETAPACE 160 MG PO (07:54)
[2023-10-17] MEDS: COREG 25 MG PO (07:55)
[2023-10-17] MEDS: SINGULAIR 10 MG PO (07:56)
[2023-10-17] MEDS: PROTONIX 40 MG PO (07:56)
[2023-10-17] MEDS: IMDUR (EXTENDED RELEASE) 60 MG PO (07:56)
[2023-10-17] MEDS: ELIQUIS 5 MG PO (07:57)
[2023-10-17] MEDS: PLAVIX 75 MG PO (07:57)
[2023-10-17] MEDS: LASIX 80 MG IV (07:57)
--- NOTE | 2023-10-17 08:04 | W.PN.CD ---
Today's Communication / Plan
-
Change furosemide to 40 mg PO daily.
Daily weights.
Increase furosemide to 80 mg daily if weight increases by 1-3 lbs/24 hours, 3-5 lbs/week.
Start standing KCl 20 mEq daily.
Outpatient BMP next week.
Close outpatient follow up with cardiology and PCP.
Discharge planning.
Impression / Plan
-
Impression/Plan: 72[address] Buckner with CAD, ICM, VT s/p ablation, BiV ICD (prior [employer] Dieterich lead fracture with new RV lead placement 2011, prior BiV ICD pocket infection with extraction and replacement), hypertension, and diabetes
requiring insulin presented to the cardiology office after ICD shock.
#ICD shock/VT/VF
-36J with judaism to sinus on 10/12/2023 at 2100 for VF, he was unaware of ICD therapy as he was asleep
-Amiodarone intolerance noted.
-Continue sotalol.
-Carvedilol increased to 25 mg BID yesterday.
-Ischemic evaluation showed new OM1 90% lesion (relatively small vessel). Could be responsible for electrical instability. S/P PCI (Medtronic Surinder [place] 2.0 x 12 CEM), 10/15/2023.
#Paroxysmal atrial fibrillation
-Brief on prior device check
-Maintaining sinus on sotalol.
-Rate control on carvedilol.
-[id number]: score at least 5 (Heart failure, HTN, Diabetes Mellitus, Vascular disease, age 65-74).
-Therapeutic anticoagulation with apixaban. Clopidogrel added for PCI.
#HFrEF/ICM (EF 20-25%)
-Acute on chronic.
-Weight falling precipitously (97.5 <-- 108.5).
-GDMT as tolerated.
-Beta-aisha: Carvedilol 25mg BID
-Aldosterone agonist: Can consider after recovery.
-Isosorbide/hydralazine: Isosorbide mononitrate 60 mg daily.
-MIS/ARB: Losartan 25 mg daily (Entresto cost prohibitive).
-SGLT inhibitor: Cost prohibitive.
-BiV ICD: Implanted (Medtronic).
-Change to furosemide 40 mg PO daily. Discharge furosemide dose of 40 mg daily, increase to 80 mg daily for weight gain fo 1-3 lbs/24 hours, 3-5 lbs/week.
-Start standing KCl 20 mEq daily.
-Outpatient BMP next week.
-Keep K > 4, Mg > 2, Ca > 8.5, PO4 > 2.5.
#CAD
-Chronic.
-Denies angina.
-Previous films reviewed. Left dominant circulation with LAD CARPENTER GENERAL, PCI to the LPDA (05/01/2011).
-Catheterization for VT/VF showed a new 90% lesion in a small OM1. Possible cause of electrical instability. S/P PCI (Medtronic Surinder [place] 2.0 x 12 CEM) with reduction in stenosis to 0%.
-Continue beta aisha and statin.
-Continue clopidogrel + apixaban.
#Transaminitis
-Acute, mild.
-DDx includes DELEON/NAFLD, DILI, obstruction (without pain?), viral, congestion. Auto immune seems less likely.
-RUQ US shows fatty infiltration.
-Outpatient work up if transaminitis persists.
#GERD, on PPI, follows with GI
#Type 2 diabetes mellitus, Hgba1c in am
#Anemia, chronic
#Former smoker, continued cessation recommended
Subjective/Interval History:
Abdominal US shows fatty liver.
Weight continues to fall.
He feels well.
LE edema has resolved.
DATA:
Cardiac Catheterization/PCI, 10/15/2023:
CONCLUSIONS
1.� Left dominant circulation with an 80% lesion in the proximal RCA, a chronically totally occluded proximal LAD, a patent stent in the distal circumflex leading into the LPDA and a new, 90% lesion in the proximal OM1, status post successful PCI
(Medtronic Surinder [place] 2.0 x 12 CEM) with reduction in stenosis to 0%, maintaining ODALIS-3 flow.
2.� Severely elevated filling pressures (LVEDP = 35 mmHg at 105.7 kg) with evidence of diastolic dysfunction (A wave to 50 mmHg).
TTE, 06/25/2023:
CONCLUSIONS
�Contrast used.
�
�Left ventricle is severely dilated. Severely reduced left ventricular systolic
�function. Left ventricular ejection fraction: 20-25%.
�Akinetic apex, septum and anterior duran.
�Stage III diastolic dysfunction suggestive of restrictive filling pattern and
�increased filling pressures.
�Aortic sclerosis without stenosis. Mild aortic regurgitation.
�Mild/moderate tricuspid regurgitation. Moderately elevated PASP. Estimated
�pulmonary artery pressure of 53 mmHg. Assuming a right atrial pressure of 8
�mmHg.
�No LV thrombus.
�
�Compared to 01/08/22: TR has progressed from mild to mild/moderate, and PASP has
�increased from 35 to 53mmHg. Other findings stable.
Cardiac Catheterization/PCI, 05/01/2011:
CORONARY ANGIOGRAPHY
Dominance: Left
Left Main: Short without focal stenosis
LAD: The LAD is occluded just distal to its origin from the left main coronary artery. The distal LAD fills via a well-developed collaterals from the second obtuse marginal branch. The proximal LAD receives some collateral flow from a right
ventricular branch of the right coronary artery.
Circumflex: The circumflex is a large dominant vessel. The first obtuse obtuse marginal branch is a small to medium size vessel without disease. The second obtuse marginal branch is disease free and collateralizes the distal LAD. The third obtuse
marginal branch is large with smooth 40% proximal to mid stenosis. The circumflex continues in the AV groove to give rise to one small and one very large left posterolateral branch which have mild luminal disease. The circumflex terminates with a
large left PDA which has a long proximal stenosis to 80%.
RCA: Nondominant vessel with 60-70% mid stenosis.
Angioplasty: At the conclusion of the diagnostic study, the patient underwent intervention to treat the proximal left PDA lesion. Plavix 600 mg was administered and heparin given to keep the ACT greater than 250. A BMW wire was passed through a EBU
3.75 guide catheter and easily crossed the lesion. Direct stenting with a 3.0 x 18 Xience V drug-eluting stent deployed at 15 atmospheres was followed by post dilatation with a 3.25 x 15 Quantum apex balloon to 17 atmospheres. The final angiographic
result was outstanding. There were no procedural complications.
Physical Exam
Vital Signs/Labs
Vital Signs
Temp Pulse Resp BP Pulse Ox
36.9 C 60 18 144/86 95
10/17/23 04:17 10/17/23 07:57 10/17/23 04:17 10/17/23 07:57 10/17/23 04:17
10/15/23 10/16/23 10/17/23
11:59 11:59 11:59
Actual Weight 105 kg 100.7 kg 97.4 kg
10/17/23 04:22
10/17/23 04:22
Magnesium 1.7 mg/dl (1.6-2.3) 10/15/23 03:18
Triglycerides 65 mg/dl (10-149) 10/15/23 03:18
LDL Cholesterol, Calc 57 mg/dl 10/15/23 03:18
VLDL Cholesterol, Calc 13 mg/dl (0-30) 10/15/23 03:18
HDL Cholesterol 28 mg/dl 10/15/23 03:18
Digoxin 0.4 ng/ml (0.8-2.0) L 10/14/23 15:54
LAB Results
10/14/23 10/14/23 10/15/23
15:54 21:29 03:18
Troponin I 0.025 0.028 0.031
Physical Exam
Constitutional: No acute distress and Comfortable
EENT: Anicteric and Moist mucous membranes
Cardiovascular: Rhythm & rate is regular, Pedal edema is absent, JVD pressure is normal, S1S2 is normal and Murmur/rub/gallop absent
Respiratory: Respiratory effort normal, Lungs clear to auscul., Wheeze Absent, Crackles Absent and Rhonchi Absent
GI: Soft, Distention absent, Flat, Non tender and Normal bowel sounds
Neuro/Psych: AO x 3
Other: Cath Site (Right radial access site is C/D/I.)
Data Reviewed
-
Date of Service: October 17, 2023
Medical Decision Making: Reviewed Test Results, Independent Historian Assessment and Test Interpretation
EKG: Tracing Personally Visualized and interpreted and Report Reviewed by me
Echo: Tracing Personally Visualized and interpreted and Report Reviewed by me
X-Ray/CT/US/MRI/NUC/PET: Image Personally Visualized and interpreted and Report Reviewed by me
Medical Tests (PFT, Pathology etc): Image Personally Visualized and interpreted, Report Reviewed by me and Discussed with Patient
Labs: Labs Reviewed by me
Old Records: Reviewed
--- NOTE | 2023-10-17 10:47 | W.PN.HOSP.TC ---
Today's Communication/Plan
-
Monitor vital signs and see plan
Continue with Lasix
Discharge today
Replete potassium
Time of discharge 38 minutes
Assessment / Plan
Assessment / Plan
General: No Apparent Distress and Comfortable
HEENT: NormoCephalic, Anicteric and Moist mucous membranes
Respiratory: Clear; No Wheezes
Cardiac: S1/S2; No Tachycardia
Breast: Deferred by me
GI: Soft, Non Tender, Non Distended and Normal Bowel Sounds
Rectal: Deferred by Provider
Genito-urinary: No Romero
Musculoskeletal: Edema, Left Lower Extremity and Edema, Right Lower Extremity
Neuro: Awake, Alert, Oriented and AO x 3
Psych: Calm and Intact Judgment/Insight
Shortness of breath likely secondary to V-fib and acute on chronic congestive heart failure with reduced ejection fraction/ischemic cardiomyopathy
Now on p.o. Lasix
Continue with Imdur, sotalol, Coreg
eliquis
Echo 10/15 with EF 20 to 25%, global hypokinesis
trops not significant
s/p cath 10/15 with new stent prox OM1; now on eliquis and plavix
Paroxysmal atrial fibrillation
Continue with sotalol, Coreg.� Hold Eliquis for catheterization
on dig
History of CAD
Currently denies any chest pain
s/p cath 10/15 with new stent prox OM1; now on eliquis and plavix
Continue with aspirin, Coreg and statin
Hypomagnesemia
Hypokalemia
Replete
Type 2 diabetes mellitus
A1c 7.7
Takes 70/30 at home. now start 14 units lantus tonite
no documented accuchecks since last night
Anemia, suspect chronic
Iron deficiency
Start IV iron
Elevated LFTs
Could be high secondary to congestion
Monitor; RUQ US with stones but no infection
Denies abdominal pain
hold statin; restart on dc as LFT's improving
DVT prophylaxis
eliquis
Full code
Anticipated Discharge: Today
Subjective/Interval History
-
Date of Service: October 17, 2023
Denies pain
Objective Data
-
Labs:
Laboratory Results
10/17/23
04:22
WBC 5.5
Hgb 9.0 L
Hct 30.0 L
Plt Count 158
Sodium 138
Potassium 3.2 L
Chloride 99
Carbon Dioxide 29
BUN 23 H
Creatinine 0.8
Glucose 189 H
Calcium 7.8 L
Total Bilirubin 1.9 H
AST 77 H
ALT 91 H
Alkaline Phosphatase 177 H
Vital Signs:
Vital Signs
Temp Pulse Resp BP Pulse Ox
98.6 F 60 18 144/86 98
10/17/23 08:12 10/17/23 07:57 10/17/23 04:17 10/17/23 07:57 10/17/23 08:08
I&O
10/16/23 10/17/23 10/18/23
06:59 06:59 06:59
Intake Total 250 / 250 450 / 450
Output Total 3975 / 3975 3850 / 3850 2099 / 2099
Balance -3725 / -3725 -3400 / -3400 -2099 /
--- NOTE | 2023-10-17 10:54 | W.DCSUMMARY ---
Discharge Summary
Discharge Data
Date of Admission: 10/14/23
Date of Discharge: 10/17/23
-
Pending Results: No
Hospital Course
72-year-old male with past medical history of paroxysmal atrial fibrillation, CAD, type 2 diabetes mellitus came to the hospital with shortness of breath secondary to ventricular fibrillation and acute on chronic congestive heart failure with
reduced ejection fraction. Patient echocardiogram was done which showed EF of 20 to 25% with global hypokinesis. Patient also underwent cardiac catheterization on 10/15 where he got new drug-eluting stent. Catheterization also showed elevated
filling pressure consistent with fluid overload. He was then treated with IV Lasix which was later transitioned to oral Lasix. Patient also had elevated LFTs for which she got right upper quadrant ultrasound with did show some gallbladder stone
however there was no cholecystitis. His LFTs continue to improve so he was started back on his statin. He also had mild anemia which appeared to be iron deficiency so he was started on iron. Once patient symptoms improved, he was then discharged
home with close follow-up with all his physicians outpatient.
Discharge Plan
-
Patient Disposition: Home (Routine Discharge)
Discharge Diagnosis/Procedures: Ventricular tachycardia/ventricular fibrillation status post ICD shock
Angioplasty and stent to Obtuse Marginal artery
Acute on chronic congestive heart failure with reduced ejection fraction
Coronary artery disease
Transaminitis
Diet: Diabetic, Carb Controlled and No added salt
Activity: As tolerated
Driving Restrictions: As prior to admission
Bathing Restrictions: None
Blood Work: BMP next week with primary care provider.
Other Services: Cardiac Rehab
Stop these medications:: STOP aspirin- you will be on plavix and eliquis
Activity Restrictions/Additional Instructions:
Increase furosemide to 80 mg daily if weight increases by 1-3 lbs/24 hours, 3-5 lbs/week.
Stand Alone Forms: DC Instructions- Cath/EP Lab
Referrals:
[facility] [Outside]
Darlene Philippe NP [Specified Professional Personl] - 10/30/23 2:40 pm (Cardiology followup appointment)
Jacob Ayoub DO [Family Provider] - in less than 1 week
Prescriptions:
New
furosemide 40 mg Tablet
40 mg PO DAILY Qty: 30 0RF
carvedilol 12.5 mg Tablet
25 mg PO BID Qty: 60 0RF
clopidogrel 75 mg Tablet
75 mg PO DAILY Qty: 30 0RF
potassium chloride 20 mEq Tablet,Er Particles/Crystals
20 meq PO DAILY Qty: 30 0RF
Continued
digoxin 0.125 MG tablet
0.125 mg PO MOWEFR
atorvastatin 80 MG tablet
80 mg PO QPM
Novolin 70/30 U-100 Insulin 100 UNIT/1 ML suspension
60 units SC MEALS
sotalol [Betapace] 160 MG tablet
160 mg PO BID
pantoprazole 40 MG tablet,delayed release (DR/EC)
40 mg PO DAILY
metformin 1,000 MG tablet
1,000 mg PO BID@0800,1700
losartan 25 MG tablet
25 mg PO QPM
cholecalciferol (vitamin D3) [Vitamin D3] 1,000 UNIT capsule
1,000 unit PO Daily
isosorbide mononitrate 60 mg Tablet Extended Release 24 Hr
60 mg PO DAILY
tamsulosin [Flomax] 0.4 mg Capsule
0.4 mg PO HS
montelukast [Singulair] 10 mg Tablet
10 mg PO DAILY
Prostate 2.4 1,200-15-35 pruy-ssoi-psh Capsule
1 cap PO DAILY
coQ10 (ubiquinol) 100 mg Capsule
100 mg PO DAILY
Eliquis 5 mg Tablet
5 mg PO BID
Discontinued
aspirin 81 MG tablet,delayed release (DR/EC)
81 mg PO DAILY
furosemide 20 MG tablet
20 mg PO DAILY
carvedilol [Coreg] 12.5 mg Tablet
12.5 mg PO BID
Discharge Orders:
Discharge Patient (As Directed); Ordered 10/17/23
Ordered By: Jhoan Hewitt
Care Plan Goals
Care Plan Goals:
Problem: Readiness for enhanced knowledge related to diagnosis and treatment plan
Goal: Understand your diagnosis and treatment plan needs, including medications if applicable.
Instructions: Know your diagnosis, underlying causes and treatment plan options, including medications if applicable. Consult with your health care team to learn about your diagnosis and treatment plan, including medications if applicable.
Discharge Date and Time
Discharge Date/Time: 10/17/23 12:39
--- NOTE | 2023-10-17 15:11 | W.HF.CON ---
Heart Failure
- LV Function
Left ventricular function study result: LV Ejection fraction </= 35%
Ejection Fraction Percentage: 20-25
- ARNI
Patient already on ARNI: No
Heart Failure ARNI Contraindication: Patient Refusal
- ACEI/ARB
Patient already on ACEI/ARB: Yes
- Beta Elke
Patient already on Evidence Based Beta Elke: Yes
- Mineralocorticord Receptor Antagonist
Patient already on MRA: No
Heart Failure MRA Contraindication: Patient Refusal
- SGLT-2 Inhibitor
Patient already on SGLT-2 Inhibitor: No
Heart Failure SGLT-2 Inhibitor Contraindication: Patient Refusal
- Afib Anticoagulation
Patient already on Anticoagulation for Afib: Yes
- NYHA CHF Classification
NYHA CHF Classification Level: Class III - Symptoms w/ min exertion, interferes w/ nml daily activity
- ACC/AHA Stage
ACC/AHA Stage: Stage C: Symptomatic Heart Failure
== END 2023-10-17 12:39 | disposition home or self-care (01) | DRG 321 ==
LOC: IVU 18:54
PROVIDERS: Emergency Medicine; Internal Medicine Cardiovascular Disease; Nurse Practitioner Gerontology; ADMITTING PHYSICIAN Internal Medicine; EMERGENCY PHYSICIAN Emergency Medicine; FAMILY PHYSICIAN Family Medicine
PROC: B2111ZZ Fluoroscopy of Multiple Coronary Arteries using Low Osmolar Contrast (ICD-10-PCS; 2023-10-15)
PROC: 027034Z Dilation of Coronary Artery, One Artery with Drug-eluting Intraluminal Device, Percutaneous Approach (ICD-10-PCS; 2023-10-15)
PROC: 4A023N7 Measurement of Cardiac Sampling and Pressure, Left Heart, Percutaneous Approach (ICD-10-PCS; 2023-10-15)
DX: I11.0 Hypertensive heart disease with heart failure (principal); I49.01 Ventricular fibrillation; I50.23 Acute on chronic systolic (congestive) heart failure; I47.20 Ventricular tachycardia, unspecified; I25.5 Ischemic cardiomyopathy; E83.42 Hypomagnesemia; I48.0 Paroxysmal atrial fibrillation; E11.9 Type 2 diabetes mellitus without complications; D64.9 Anemia, unspecified; I25.10 Atherosclerotic heart disease of native coronary artery without angina pectoris; E87.6 Hypokalemia; Z79.01 Long term (current) use of anticoagulants; Z95.810 Presence of automatic (implantable) cardiac defibrillator
CPT/HCPCS: 36415; 71045; 76700; 80053; 80061; 80069; 80162; 82607; 82728; 82746; 82962; 83036; 83540; 83735; 84100; 84466; 84484; 85025; 85347; 93005; 93306; 93458; 96365; 96366; 96375; 99285; C1725; C1874; C1887; C1894; C9600; J2916; Q9950; Q9967

== ENCOUNTER → 2024-09-17 07:48 | Outpatient (REF) | payer OTHER, SELFPAY | LOC: RCS 07:48 | PROVIDERS: ATTENDING PHYSICIAN Nurse Practitioner Gerontology; FAMILY PHYSICIAN Family Medicine | DX: I25.5 Ischemic cardiomyopathy (principal) | CPT/HCPCS: 93306 ==